=== PATIENT | female | born 1950 | race Caucasian/White ===

== ENCOUNTER 2016-12-04 15:08 | Emergency (ER) | payer MEDICARE, MEDICAID ==
[~2016-12-04] VITALS: Ht 160 cm; Wt 59.9 kg
[~2016-12-04 15:08] MED LIST: AMLODIPINE BESYL5 MG PO; ATORVASTATIN CA10 MG PO; BACTRIM DS TAB1 EACH PO; CIPRO500 MG PO; EXCEDRIN EXTRA1 EACH PO; GABAPENTIN100 MG PO; KEFLEX500 MG PO; MOTRIN800 MG PO; NEXIUM20 MG PO; NORCO 5-325 TA1 EACH PO; OMEPRAZOLE20 MG PO; QVAR7.3 G1 INH; TYLENOL325 MG; ULTRAM50 MG PO; VENTOLIN HFA18 GM IH; ZOFRAN ODT4 MG PO
== END 2016-12-04 15:20 | disposition home or self-care (01) ==
LOC: ED 15:08
DX: N64.4 Mastodynia (principal); Z00.8 Encounter for other general examination

== ENCOUNTER 2018-08-29 15:37 | Emergency (ER) | payer MEDICARE, MEDICAID ==
[~2018-08-29] VITALS: Ht 160 cm; Wt 64.6 kg
--- OUTSIDE RECORDS SUMMARY | ~2018-08-29 | XMS | Clinical Summary ---
Demographics + + + | Address | [address] | | | [place] [address] | + + + | Home Phone | | + + + | Preferred Language | Unknown | + + + | Marital Status | | + + + | Yarsanism Affiliation | Unknown | + + + | Race | Unknown | + + + | Ethnic Group | Unknown | + + + Author + + + | Author | [facility] | | | and [place] | + + + | Organization | [facility] | | | and [place] | [...] [place] | | | | | [address] | | + + + + + | Yeison Saul | ECON | Unknown | | + + + + + | Jose Bergman | ECON | Unknown | | + + + + + Care Team Providers + +------+ + | Care Chaser Helper Name | Role | Phone | + +------+ + | En Mcguire DO | PP | | + +------+ + Allergies No [...] + + | Mother | | | [place], DM, cancer | | | | (Age [...] Vaccine: Influenza | | | | | (Season Ended) | 9 | | | + + + + + Results Not on filefrom Last 3 Months Advance Directives Patient has advance care planning documents on file. For more information, please contact:[facility] [place] [address]
--- OUTSIDE RECORDS SUMMARY | ~2018-08-29 | XMS | Clinical Summary ---
Demographics + + + | Address | [address] | | | [place] [address] | + + + | Home Phone | | + + + | Preferred Language | Unknown | + + + | Marital Status | | + + + | Congregational Affiliation | Unknown | + + + | Race | Unknown | + + + | Ethnic Group | Unknown | + + + Author + + + | Author | [facility] | | | and [place] | + + + | Organization | [facility] | | | and [place] [...] [place] | | | | | [address] | | + + + + + | Yeison Saul | ECON | Unknown | | + + + + + | Jose Bergman | ECON | Unknown | | + + + + + Care Team Providers + +------+ + | Care Reinforcement Maker Name | Role | Phone | + [...] + + | Mother | | | [place], DM, cancer | | | | (Age [...] documents on file. For more information, please contact:[facility] [place] [address]
== END 2018-08-29 16:53 | disposition home or self-care (01) ==
LOC: ED 15:37
DX: S61.211A Laceration without foreign body of left index finger without damage to nail, initial encounter (principal); W29.3XXA Contact with powered garden and outdoor hand tools and machinery, initial encounter; F17.200 Nicotine dependence, unspecified, uncomplicated; Z79.899 Other long term (current) drug therapy
CPT/HCPCS: 73140; 99283-25

== ENCOUNTER 2018-10-07 22:12 | Emergency (ER) | payer MEDICARE, MEDICAID ==
[~2018-10-07] VITALS: Ht 160 cm; Wt 64.4 kg
--- OUTSIDE RECORDS SUMMARY | ~2018-10-07 | XMS | Clinical Summary ---
Demographics + + + | Address | [address] | | | [place] [address] | + + + | Home Phone | | + + + | Preferred Language | Unknown | + + + | Marital Status | | + + + | Uatsdin Affiliation | Unknown | + + + | Race | Unknown | + + + | Ethnic Group | Unknown | + + + Author + + + | Author | [facility] | | | and [place] | + + + | Organization | [facility] | | | and [place] [...] [place] | | | | | [address] | | + + + + + | Yeison Saul | ECON | Unknown | | + + + + + | Jose Bergman | ECON | Unknown | | + + + + + Care Team Providers + +------+ + | Care Machine Stapler Name | Role | Phone | + [...] + + | Mother | | | [place], DM, cancer | | | | (Age [...] documents on file. For more information, please contact:[facility] [place] [address]
--- OUTSIDE RECORDS SUMMARY | ~2018-10-07 | XMS | Clinical Summary ---
Demographics + + + | Address | [address] | | | [place] [address] | + + + | Home Phone | | + + + | Preferred Language | Unknown | + + + | Marital Status | | + + + | Baptist Affiliation | Unknown | + + + | Race | Unknown | + + + | Ethnic Group | Unknown | + + + Author + + + | Author | [facility] | | | and [place] | + + + | Organization | [facility] | | | and [place] [...] [place] | | | | | [address] | | + + + + + | Yeison Saul | ECON | Unknown | | + + + + + | Jose Bergman | ECON | Unknown | | + + + + + Care Team Providers + +------+ + | Care Irrigation Equipment Remover Name | Role | Phone | + [...] on file. For more information, please contact:[facility] [place] [address]
[2018-10-07] MEDS ORDERED: KEFLEX500 MG PO (22:54)
== END 2018-10-07 23:10 | disposition home or self-care (01) ==
LOC: ED 22:12
DX: S61.311D Laceration without foreign body of left index finger with damage to nail, subsequent encounter (principal); L03.012 Cellulitis of left finger; F17.200 Nicotine dependence, unspecified, uncomplicated; Z90.710 Acquired absence of both cervix and uterus; Z79.899 Other long term (current) drug therapy; W31.2XXD Contact with powered woodworking and forming machines, subsequent encounter
CPT/HCPCS: 99283

== ENCOUNTER 2019-02-27 08:43 | Emergency (ER) | payer MEDICARE, MEDICAID ==
[~2019-02-27] VITALS: Ht 160 cm; Wt 59.9 kg
--- OUTSIDE RECORDS SUMMARY | ~2019-02-27 | XMS | Clinical Summary ---
Demographics + + + | Address | [address] | | | [place] [address] | + + + | Home Phone | | + + + | Preferred Language | Unknown | + + + | Marital Status | | + + + | Christian Affiliation | Unknown | + + + | Race | Unknown | + + + | Ethnic Group | Unknown | + + + Author + + + | Author | [facility] | | | and [place] | + + + | Organization | [facility] | | | and [place] | + + + | Address | Unknown | + + + | Phone | Unavailable | + + + Support + + + + + | Name | Relationship | Address | Phone | + + + + + | Garland Vasquez | ECON | [address] | | | | | [place] | | | | | [address] | | + + + + + | Yeison Saul | ECON | Unknown | | + + + + + | Jose Bergman | ECON | Unknown | | + + + + + Care Team Providers + +------+ + | Care Pipe Puller Name | Role | Phone | + +------+ + | En Mcguire DO | PCP | | + +------+ + Allergies No Known Allergies Medications + + + +---------+------+------+-------+ | Medication | Sig | Dispensed | Refills | Star | End | Statu | | | | | | t | Date | s | | | | | | Date | | | + + + +---------+------+------+-------+ | albuterol | Inhale 2 puffs into | | 0 | | | Activ | | (VENTOLIN HFA) 90 | the lungs 3 times | | | | | e | | mcg/puff inhaler | daily. | | | | | | + + + +---------+------+------+-------+ | beclomethasone | Inhale 2 puffs into | | 0 | | | Activ | | (QVAR) 40 mcg/puff | the lungs 2 times | | | | | e | | inhaler | daily. | | | | | | + + + +---------+------+------+-------+ | | Take 1 tablet by | | 0 | | | Activ | | aspirin-acetaminophe | mouth every 6 hours | | | | | e | | n-caffeine (EXCEDRIN | as needed. | | | | | | | EXTRA STRENGTH) | | | | | | | | 250-250-65 MG per | | | | | | | | tablet | | | | | | | + + + +---------+------+------+-------+ | meloxicam (MOBIC) | Take 15 mg by mouth | | 0 | | | Activ | | 15 mg tablet | Daily. | | | | | e | + + + +---------+------+------+-------+ | gabapentin | Take 400 mg by mouth | | 0 | | | Activ | | (NEURONTIN) 400 mg | 2 times daily. | | | | | e | | capsule | | | | | | | + + + +---------+------+------+-------+ | atorvaSTATin | Take 10 mg by mouth | | 0 | | | Activ | | (LIPITOR) 10 mg | nightly. | | | | | e | | tablet | | | | | | | + + + +---------+------+------+-------+ Active Problems + + + | Problem | Noted Date | + + + | GERD (gastroesophageal reflux disease) | 07/09/2013 | + + + | Chest pain | 07/09/2013 | + + + + + | Overview: [facility] | | Nuclear Stress Test 08/23/13, LVEF 94%. | + + Family History + +------+ + + | Relation | Name | Status | Comments | + +------+ + + | Father | | | | | | | (Age | | | | | 91) | | + +------+ + + | Mother | | | [place], DM, cancer | | | | (Age | | | | | 84) | | + +------+ + + Social History + + + +--------+ + | Tobacco Use | Types | Packs/Day | Years | Date | | | | | Used | | + + + +--------+ + | Current Some Day | Cigarettes | 2 | 48 | Started: 05/15/1965 | | Smoker | | | | | + + + +--------+ + + + | Tobacco Cessation: Ready to Quit: Yes | | Comments: 10 cigarrettes daily | + + + + +---------+ + | Alcohol Use | Drinks/We | oz/Week | Comments | | | ek | | | + + +---------+ + | No | | | | + + +---------+ + + + + | Sex Assigned at | Date Recorded | | | | + + + | Not on file | | + + + + + + + | Job Start Date | Occupation | Industry | + + + + | Not on file | Not on file | Not on file | + + + + + + + + | Travel History | Travel Start | Travel End | + + + + + + | No recent travel history available. | + + Last Filed Vital Signs + + + + | Vital Sign | Reading | Time Taken | + + + + | Blood Pressure | 134/72 | 11/03/20143 PDT | + + + + | Pulse | 66 | 11/03/20143 PDT | + + + + | Temperature | - | - | + + + + | Respiratory Rate | 14 | 11/03/20141152 PDT | + + + + | Oxygen Saturation | - | - | + + + + | Inhaled Oxygen | - | - | | Concentration | | | + + + + | Weight | 60.8 kg (134 lb) | 11/03/20141152 PDT | + + + + | Height | 170.2 cm (5' 7") | 11/03/20141152 PDT | + + + + | Body Mass Index | 20.99 | 11/03/20141152 PDT | + + + + Plan of Treatment + + + + + | Health Maintenance | Due Date | Last Done | Comments | + + + + + | Vaccine: | | | | | Dtap/Tdap/Td (1 - | 9 | | | | Tdap) | | | | + + + + + | Vaccine: Zoster (1 | | | | | of 2) | 0 | | | + + + + + | Breast Cancer | | | | | Screening | 5 | | | + + + + + | Vaccine: | | | | | Pneumococcal 65+ | 5 | | | | Low/Medium Risk (1 | | | | | of 2 - PCV13) | | | | + + + + + | Vaccine: Influenza | | | | | (#1) | 9 | | | + + + + + Results Not on filefrom Last 3 Months Advance Directives Patient has advance care planning documents on file. For more information, please contact:[facility] [place] [address]
--- OUTSIDE RECORDS SUMMARY | ~2019-02-27 | XMS | Clinical Summary ---
Demographics + + + | Address | [address] | | | [place] [address] | + + + | Home Phone | | + + + | Preferred Language | Unknown | + + + | Marital Status | | + + + | Orthodox Affiliation | Unknown | + + + | Race | Unknown | + + + | Ethnic Group | Unknown | + + + Author + + + | Author | [facility] | | | and [place] | + + + | Organization | [facility] | | | and [place] [...] [place] | | | | | [address] | | + + + + + | Yeison Saul | ECON | Unknown | | + + + + + | Jose Bergman | ECON | Unknown | | + + + + + Care Team Providers + +------+ + | Care Multi Punch Operator Name | Role | Phone | + [...] + + | Mother | | | [place], DM, cancer | | | | (Age [...] documents on file. For more information, please contact:[facility] [place] [address]
[2019-02-27] MEDS ORDERED: AUGMENTIN 875-1 EACH PO (09:30)
== END 2019-02-27 09:50 | disposition home or self-care (01) ==
LOC: ED 08:43
DX: S61.452A Open bite of left hand, initial encounter (principal); W54.0XXA Bitten by dog, initial encounter; F17.200 Nicotine dependence, unspecified, uncomplicated; Z79.899 Other long term (current) drug therapy
CPT/HCPCS: 99283

== ENCOUNTER 2020-12-09 09:17 | Emergency (ER) | payer MEDICARE, OTHER ==
[~2020-12-09] VITALS: Ht 160 cm; Wt 59.9 kg
[~2020-12-09 09:17] MED LIST changes: +AUGMENTIN 875-1 EACH PO
[2020-12-09] MEDS ORDERED: OXYBUTYNIN CHLO10 MG PO (15:10)
[2020-12-09] MEDS ORDERED: METOPROLOL SUCC25 MG PO (15:13)
--- NOTE | 2020-12-09 16:58 | EKG ---
[facility] [address] [place] [address] Signed Sinus tachycardia Possible Left atrial enlargement Borderline ECG No previous ECGs available Confirmed by MARIA R CALLOWAY DO ([id number]) on 12/09/2020 4:57:59 PM Electronically Signed By: MARIA R CALLOWAY DO 12/09/20 1658 PATIENT NAME: BRANDON HERNANDEZ HEMANT Electrocardiogram DATE OF : 50 PHYSICIAN: MARIA R CALLOWAY DO REPORT #: [id number] REPORT IS CONFIDENTIAL AND NOT TO BE RELEASED WITHOUT AUTHORIZATION
== END 2020-12-09 12:55 | disposition home or self-care (01) ==
LOC: ED 09:17
DX: U07.1 COVID-19 (principal); F17.200 Nicotine dependence, unspecified, uncomplicated; Z79.899 Other long term (current) drug therapy
CPT/HCPCS: 71045; 80053; 81001; 83605; 85025; 93005; 93010; 99284-25; C9803; J7030; M0243; Q0244; U0003